=== PATIENT | male | born 1970 | race Caucasian/White ===

== ENCOUNTER 2018-08-13 20:15 | Emergency (ER) | payer OTHER ==
[~2018-08-13] VITALS: Ht 188 cm; Wt 113.4 kg
[~2018-08-13 20:15] MED LIST: DIPH50 PO; ESOM20 PO; FEXPSEER PO; IBUP800 PO; MULVITMIND PO
[2018-08-13] MEDS ORDERED: CLON.5 PO (20:26)
[2018-08-13] MEDS ORDERED: Depo-Testos200 MG/ML IM (20:26)
[2018-08-13] MEDS ORDERED: ESCI20 PO (20:26)
[2018-08-13] MEDS ORDERED: TEMA15 PO (20:27)
[2018-08-13] MEDS ORDERED: Inderal 20 mg T20 MG GT (20:28)
[2018-08-13] MEDS ORDERED: Prinivil10 MG PO (20:28)
[2018-08-13 22:02] LABS: BASOPHILS ABSOLUTE AUTO 0.02 K/mm3 (0.00-0.23); BASOPHILS PERCENT AUTO 0 % (0-2); EOSINOPHILS ABSOLUTE AUTO 0.02 K/mm3 (0.00-0.68); EOSINOPHILS PERCENT AUTO 0 % (0-6); Hematocrit 43.1 % (37.0-53.0); Hemoglobin 14.4 g/dL (13.5-17.5); IMMATURE GRAN ABSOLUTE AUTO 0.01 K/mm3 (0.00-0.10); IMMATURE GRAN PERCENT AUTO 0 % (0-1); LYMPHOCYTES ABSOLUTE AUTO 1.13 K/mm3 (0.84-5.20); LYMPHOCYTES PERCENT AUTO 24 % (21-46); MONOCYTES ABSOLUTE AUTO 0.48 K/mm3 (0.16-1.47); MONOCYTES PERCENT AUTO 10 % (4-13); Mean Corpuscular HGB 31.6 pg (26.0-34.0); Mean Corpuscular HGB Conc 33.4 g/dL (31.5-36.5); Mean Corpuscular Volume 95 fL (80-100); Mean Platelet Volume 8.8 fL (9.1-12.4); NEUTROPHILS ABSOLUTE AUTO 3.03 K/mm3 (1.96-9.15); NEUTROPHILS PERCENT AUTO 65 % (41-73); Platelet Count 150 K/mm3 (150-400); RDW Coefficient Variation 13.3 % (11.7-14.2); RDW Standard Deviation 46.8 fL (35.1-46.3); Red Blood Cell Count 4.55 M/mm3 (4.30-5.90); White Blood Cell Count 4.69 K/mm3 (4.00-11.30)
[2018-08-13 22:24] LABS: Alanine Aminotransfer (ALT/SGP 54 U/L (12-78); Albumin, Blood 3.9 g/dL (3.4-5.0); Albumin/Globulin Ratio 1.1 (0.8-1.8); Alk Phos 63 U/L (50-136); Anion Gap 12 mmol/L (6-16); Aspartate Aminotrans (AST/SGOT 93 U/L (12-37); Bilirubin, Total 0.3 mg/dL (0.1-1.0); Blood Urea Nitrogen 17 mg/dL (8-24); Bun/Creatinine Ratio 17.2 (12.0-20.0); CO2, Blood 26 mmol/L (21-32); Calcium, Blood 8.2 mg/dL (8.5-10.1); Chloride, Blood 102 mmol/L (98-108); Creatinine, Blood 0.99 mg/dL (0.60-1.20); Ethanol (Alcohol), Blood, Med 412 mg/dL; Globulin, Blood 3.4 g/dL (2.2-4.0); Glomerular Filtration Rate >60 (60-); Glucose, Blood 111 mg/dL (70-99); Potassium, Blood 3.8 mmol/L (3.5-5.5); Sodium, Blood 140 mmol/L (136-145); Total Protein, Blood 7.3 g/dL (6.4-8.2)
== END 2018-08-13 23:03 | disposition home or self-care (01) ==
LOC: EDBD 20:15 → ER 20:15
PROVIDERS: Emergency Medicine
DX: R55 Syncope and collapse (principal); I10 Essential (primary) hypertension; Z88.8 Allergy status to other drugs, medicaments and biological substances; Z79.899 Other long term (current) drug therapy; V89.2XXA Person injured in unspecified motor-vehicle accident, traffic, initial encounter
CPT/HCPCS: 70450; 80053; 85025; 93005; 93010; 99284-25; G0480

== ENCOUNTER → 2022-07-01 | Outpatient (CLI) | payer OTHER ==
[~2022-07-01] MED LIST changes: +CLON.5 PO; +Depo-Testos200 MG/ML IM; +ESCI20 PO; +Inderal 20 mg T20 MG GT; +Prinivil10 MG PO; +TEMA15 PO
== END | disposition home or self-care (01) ==
LOC: PLD 09:49 → LAB 09:49 → LAB SHORT 09:49
DX: D48.5 Neoplasm of uncertain behavior of skin (principal)
CPT/HCPCS: 88305

== ENCOUNTER → 2022-11-11 | Outpatient (CLI) | payer OTHER | END | disposition home or self-care (01) | LOC: PLD 11:51 → LAB SHORT 11:51 → LAB 11:51 | DX: L73.8 Other specified follicular disorders (principal) | CPT/HCPCS: 88305; 88312; 88313 ==

== ENCOUNTER → 2024-09-04 | Outpatient (CLI) | payer OTHER | LOC: LAB SHORT 18:06 → LAB 18:06 | DX: L72.9 Follicular cyst of the skin and subcutaneous tissue, unspecified (principal); L08.9 Local infection of the skin and subcutaneous tissue, unspecified | CPT/HCPCS: 87070; 87075; 87076; 87205 ==

== ENCOUNTER 2024-12-15 18:30 | Emergency (ER) | payer OTHER ==
[~2024-12-15] VITALS: Ht 185.4 cm; Wt 129.3 kg
[2024-12-15] MEDS ORDERED: Ketorolac Tromethamine 30mg Vial IM ONE (19:55)
[2024-12-15] MEDS ORDERED: RX Prepack 6 Tabs Oxycodone 5mg UD ONE (19:55)
[2024-12-15] MEDS ORDERED: OXAYDO5 M1 PO (19:57)
[2024-12-15 20:15] VITALS: BP 139/90
== END 2024-12-15 20:30 | disposition home or self-care (01) ==
LOC: ER 18:30
DX: S89.91XA Unspecified injury of right lower leg, initial encounter (principal); X58.XXXA Exposure to other specified factors, initial encounter; Z79.899 Other long term (current) drug therapy; Z88.1 Allergy status to other antibiotic agents; Z88.8 Allergy status to other drugs, medicaments and biological substances
CPT/HCPCS: 73562-RT; 96372; 99283-25; A9270; J1885